=== PATIENT | male | born 1990 | race Caucasian/White ===

== ENCOUNTER 2024-10-08 22:25 | Inpatient (IN) | payer BC, SELFPAY ==
[2024-10-08] VITALS (25 sets, daily range): BP systolic 155–250; BP diastolic 101–147; BMI 35.9; BMI 36.6
--- NOTE | 2024-10-08 19:28 | ED.GENMED ---
History of Present Illness
General
Chief Complaint: Eye Problems
Source: patient
Exam Limitations: none
Time Seen by Provider: 10/08/24 18:51
History of Present Illness
History of Present Illness:
Note:
CHIEF COMPLAINT(S)
Blurry vision in the left eye and high blood pressure.
HISTORY OF PRESENT ILLNESS
The patient is a 34-year-old male who presents with a complaint of blurry vision in the left eye that began approximately six days ago. 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 Initially attributing the issue to contact lens discomfort, the patient described the vision alteration as a dark spot in the visual field, izaiah to the afterimage one sees after looking at a bright light, surrounded by blurry edges. He
reports that the symptom was persistent through various activities such as reading and screen use, and he noticed difficulty focusing, requiring his other eye to adjust, which occasionally led to headaches.
The patient visited his eye doctor, where a diagnosis of optic neuritis was considered after observing some changes in the optic nerve on imaging. He was recommended to visit the emergency room for further evaluation possibly due to elevated blood
pressure, though no medications were prescribed at that time.
The patient denies nausea, vomiting, fever, chills, chest pain, shortness of breath, abdominal pain, constipation, or diarrhea. He recalls bumping his head mildly a few days prior but denies any significant impact or headaches during that time.
CHRONIC MEDICAL CONDITIONS SIGNIFICANTLY AFFECTING CARE
The patient reports a historical observation of borderline high blood pressure, although he has never been formally treated for hypertension and has not undergone regular medical follow-up in years.
SOCIAL HISTORY
The patient reports regular alcohol consumption, indicating that he drinks every other to every three days. He consumes about three to four drinks per occasion, with a tendency to increase during weekends.
REVIEW OF SYSTEMS
- Visual: Blurry vision described as a dark spot, blurry on the edges, with associated headaches.
- Neurological: Denies significant headaches post minor head impact, denies nausea or vomiting.
- General: No fever, chills; no signs of infection or systemic illness.
- Cardiovascular: High blood pressure.
PHYSICAL EXAM
- Nursing notes reviewed and vital signs reviewed.
PROBLEM LIST
Acute Problems:
Malignant hypertension, possible optic neuritis
PLAN
1. Perform blood work to assess kidney function and electrolyte levels due to elevated blood pressure.
2. Monitor and manage high blood pressure cautiously; potential introduction of antihypertensive medication depending on lab results.
3. hospital admission for observation and evaluation of hypertension based on results.
4. Obtain computed tomography scan results to assess any structural changes in the brain or eye region.
5. Discuss potential lifestyle modifications focused on reducing alcohol consumption and managing hypertension moving forward.
DIFFERENTIAL DIAGNOSIS
The Differential Diagnosis includes, in no particular order, and is not limited to:
1. Malignant hypertension
2. Hypertensive retinopathy.
3. Central retinal vein occlusion.
4. Intracranial hypertension.
5. Transient ischemic attack.
6. Migraine with aura.
7. Retinal detachment.
8. Diabetic retinopathy.
9. Brain tumor.
10. Multiple sclerosis.
Disposition:
SUMMARY OF ENCOUNTER
The patient, a 34-year-old male, presented with a complaint of a floater in the left eye that had persisted for six days. During his visit to the emergency department, he was found to have hypertension. After consulting with ophthalmology, it was
recommended to control his blood pressure to address the malignant hypertension. Accordingly, the patient was started on a beta-dutch drip for blood pressure management and was prepared for hospital admission for further observation and treatment.
DISPOSITION
Admit.
ASSESSMENT
The patient presents with malignant hypertension and blurred vision in the left eye, possibly due to optic neuritis linked to elevated blood pressure.
MANAGEMENT OF THE PATIENTS CARE WAS DISCUSSED WITH
Ophthalmology, specifically Dr. Baig.
PLAN
The plan is to admit the patient for observation and management of malignant hypertension, starting with a beta-dutch drip to stabilize blood pressure.
MEDICAL DECISION MAKING
- Number and Complexity of Problems Addressed: Chronic conditions affecting care include a historical observation of borderline high blood pressure. Differential diagnosis includes optic neuritis, hypertensive retinopathy, central retinal vein
occlusion, intracranial hypertension, transient ischemic attack, migraine with aura, retinal detachment, diabetic retinopathy, brain tumor, and multiple sclerosis.
CRITICAL CARE TIME
I provided critical care time to manage the patients condition effectively, especially considering the risk of complications from malignant hypertension and addressing the persistence of blurred vision.
DIAGNOSIS
- Malignant hypertension (I10)
- Possible optic neuritis (H46.9)
Review of Systems
Review of Systems
All Other Systems: ROS reviewed and negative except as documented in HPI and ROS
Constitutional: Reports no symptoms
EENT: Reports other (Floater)
Respiratory: Reports no symptoms
Cardiac: Reports no symptoms
ABD/GI: Reports no symptoms
: Reports no symptoms
Musculoskeletal: Reports no symptoms
Skin: Reports no symptoms
Neurological: Reports no symptoms
Endocrine: Reports no symptoms
Hematologic/Lymphatic: Reports no symptoms
Psychiatric: Reports no symptoms
Phy Exam
General Physical Exam
General Presentation: well appearing and no apparent distress
General Skin: warm and dry
General Habitus: normal
General Mental: alert
General Hydration: appears well hydrated
ENT Exam
ENT Exam: EOMI, pharynx normal, neck supple and normocephalic
Eye Exam
Eye Exam: PERRL, cornea clear and conjunctiva normal
Cardiovascular Exam
Cardiovascular Exam: regular rate/rhythm, no edema, no murmur and normal peripheral pulses
Pulmonary Exam
Pulmonary Exam: lungs clear, no respiratory distress, no rales, no crackles, no rhonchi, no stridor, no wheezing and no cough
Gastrointestinal Exam
Gastrointestinal Exam: normal bowel sounds, non tender, soft, no organomegaly, no pulsatile mass and non distended
Neurological Exam
Neurological Exam: alert, oriented x3, no motor deficits and speech normal
Musculoskeletal Exam
Musculoskeletal Exam: full ROM and no edema
Skin Exam
Skin Exam: normal color, warm/dry, no rash and no petechia
Psychiatric Exam
Psychiatric Exam: normal mood/affect
Course
Orders/Labs/Results
Orders:
Orders
10/08/24 17:01
CT Head W/o Iv Contrast Urgent
Comment:
Reason For Exam: dark spot left eye visual field/hypertension
10/08/24 19:25
Complete Blood Count/With Diff Urgent
Comprehensive Metabolic Panel Urgent
Erythrocyte Sed Rate Urgent
PTT Urgent
Prothrombin Time Urgent
TSH Urgent
Troponin I Urgent
10/08/24 19:32
Lisinopril [Zestril] 10 mg PO NOW STA
10/08/24 20:08
Electrocardiogram (*1) Urgent
Reason for Study: Bradycardia / Tachycardia
EKG- Treatment ONCE
10/08/24 21:30
Labetalol HCl [Trandate] 400 mg Empty Viaflex Container 100 ml [Viaflex Empty Container] 0 ml IV PER PROTOCOL
Initial dose in mg/min, then titrate:: 2
Titrate to keep:: SBP 120 - 140 mmHg
Titrate by mg/min:: 0.5 mg/min
Frequency of titrations (minutes):: 15
Additional Titration Instructions:: Bolus with 20 mg IV every 15 minutes PRN dose increase
Maximum dose in mg/min:: 4
Begin to taper infusion when:: Remained at goal for 4hrs
Taper by mg/min:: 0.5 - 1 mg/min
Frequency of taper (minutes) if patient maintains goal:: 30
Taper to off?: Yes
If infusion off & no longer maintaining goal:: Contact Provider
Abnormal Lab Results
10/08/24
19:25
Abs Immat Gran (auto) 0.1 H 10^3/uL
(0-0.05)
Absolute Monos (auto) 0.7 H 10^3/uL
(0.1-0.6)
Immature Gran % 0.7 H %
(0-0.5)
ALT 56 H U/L
(0-50)
Albumin 5.1 H g/dl
(3.5-5.0)
10/08/24 19:25
10/08/24 19:25
Vital Signs
Initial and Last Documented VS:
Initial Vital Signs
Temp Pulse Resp BP Pulse Ox
98.2 F 98 20 250/147 98
10/08/24 16:55 10/08/24 16:55 10/08/24 16:55 10/08/24 16:55 10/08/24 16:55
Last Documented Vital Signs
Temp Pulse Resp BP Pulse Ox
97.6 F 100 19 196/122 99
10/08/24 18:48 10/08/24 21:56 10/08/24 19:22 10/08/24 21:56 10/08/24 19:28
*Radiology
Radiology exam reviewed: radiology read reviewed
*Pulse Oximetry
SaO2: 99
Oxygen Mode of Delivery: Room air
Patient hypoxic: no
*Critical Care Note
Total Time (30-74mins, 75-104mins- exclusive of procedures): 33
comment:
Critical care statement: A total of 33 minutes of critical care time was provided for this patient. This time is separate from time utilized to perform the aforementioned documented procedures. Aggregate critical care time includes only time
during which I was engaged in work directly related to the patient's care, as described above, whether at the bedside or elsewhere in the Emergency Department.
ED Attending Note
-
Portions of this chart may have been created with voice recognition software.� Occasional wrong word or��sound alike� substitutions may have occurred due to the inherent limitations of voice recognition software.
Discharge Plan
Departure
Patient Disposition: Admit
Date of Disposition: 10/08/24
Time of Disposition: 22:06
Admit to: IMU
Presentation/result/management discussed w/ accepting MD/DO: Hospitalist
Patient with high blood pressure during this ER visit?: Yes
Discharge Problem:
Malignant hypertension, Hypertensive retinopathy
Prescriptions:
No Action
acetaminophen [Tylenol] 325 mg Tablet
650 mg PO DAILYPRN PRN (Reason: mild pain)
Referrals:
NONE,* [Family Provider, Internal Medicine]
Interventions
Interventions:
*Risk Screen - Suicide Last Done: 10/08/24 16:55
*General Assessment Last Done: 10/08/24 18:48
*Neglect/Abuse Screening Last Done: 10/08/24 16:55
*ED- Fall Risk Assessment Last Done: 10/08/24 18:48
*ED COVID-19 Vaccine History Last Done: 10/08/24 18:48
Discharge Date and Time
Print Language: TURKMEN
[2024-10-08 19:37] LABS: Hematocrit 43.7 % (39.0-52.0); Hemoglobin 15.1 g/dL (13.0-18.0); Mean Corp Hgb Conc. 34.6 g/dL (33.0-37.0); Mean Corpuscular Volume 84.9 fL (80.0-94.0); Nucleated Red Blood Cells % 0 % (-); Platelet Count 235 10^3/uL (130-400); Red Cell Dist. Width 12.2 % (11.5-14.5)
[2024-10-08] MEDS: ZESTRIL 10 MG PO (19:43)
[2024-10-08 19:47] LABS: INR 1.02; PT 13.9 Sec (11.4-14.6)
[2024-10-08 19:48] LABS: APTT 32.0 Sec (23.4-35.0)
[2024-10-08 20:00] LABS: ALT (SGPT) 56 U/L (0-50); AST (SGOT) 52 U/L (17-59); Albumin 5.1 g/dl (3.5-5.0); Alkaline Phosphatase 55 U/L (38-126); Blood Urea Nitrogen 14 mg/dl (9-20); Calcium 9.7 mg/dl (8.4-10.2); Carbon Dioxide 23 mmol/L (22-30); Chloride 107 mmol/L (98-107); Estimated Creatinine Clearance > 125 ml/min; Glucose 94 mg/dl (70-99); Potassium 3.5 mmol/L (3.5-5.1); Sodium 141 mmol/L (135-145); Total Protein 7.6 g/dl (6.3-8.2); Troponin I < 0.012 ng/ml; eGFR > 60.00
[2024-10-08 20:50] LABS: TSH 1.66 uIU/ml (0.47-4.68)
[2024-10-08] MEDS: TRANDATE 80 MG IV (21:56)
--- NOTE | 2024-10-08 22:16 | HPS.HSE ---
Family Physician
-
Family Physician: * NONE
Chief Complaint
-
dark spot in L eye
History of Present Illness
34yo M came with persistent fixed dark sopot in L eye. 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 No retinal pathology on paperwork
presented by patient in ED. In ED found significant hypertension, admitted for malignant HTN.
Medical History
Past Medical History
Past Medical History: Reports None
Past Surgical History: Reports None
Social History
Tobacco: Non-smoker
Alcohol: Occasional
Drug: None
Family History
Family History: Not pertinent
Allergies / Home Medications
Allergies reflects when Allergies were last updated in [employer].
Home Medications with original date entered in [employer]
Allergy/Medication List:
Allergies
Allergy/AdvReac Type Severity Reaction Status Date / Time
No Known Drug Allergies Allergy Unknown Verified 10/08/24 19:37
Home Medications
acetaminophen 325 mg tablet (Tylenol) 650 mg PO DAILYPRN PRN mild pain 10/08/24
Review of Systems
-
History Source: Patient
A 12 point ROS was completed and negative except as noted: Yes
EENT: Reports See HPI
Physical Exam
Vital Signs
Vital Signs
Temp Pulse Resp BP Pulse Ox
97.6 F 100 19 196/122 99
10/08/24 18:48 10/08/24 21:56 10/08/24 19:22 10/08/24 21:56 10/08/24 19:28
Physical Exam
General: Well Nourished, No Apparent Distress and Comfortable
HEENT: NormoCephalic, Anicteric and Moist mucous membranes
Respiratory: Clear; No Wheezes or Crackles
Cardiac: S1/S2 and Regular Rhythm; No Murmur
GI: Soft, Non Tender and Non Distended
Genito-urinary: No costovertebral tender
Musculoskeletal: No Clubbing, No Cyanosis and No Edema
Skin: Warm; No Rash or Jaundice
Neuro: Awake, Alert, Oriented and AO x 3
Psych: Calm
Laboratory Results
-
10/08/24:
10/08/24:
Laboratory Results
PT 13.9 Sec (11.4-14.6) 10/08/24
INR 1.02 10/08/24
APTT 32.0 Sec (23.4-35.0) 10/08/24
Total Bilirubin 0.7 mg/dl (0.2-1.3) 10/08/24
AST 52 U/L (17-59) 10/08/24
ALT 56 U/L (0-50) H 10/08/24:
Alkaline Phosphatase 55 U/L (38-126) 10/08/24:
Troponin I < 0.012 ng/ml 10/08/24:
Data Reviewed
-
CT Scan: Report Reviewed by me
Lab Data: Labs Reviewed by me
Impression/Plan
-
A/P:
#Optical disk swelling with floater 2/2 malignant HTN
ALso discussed with ophthalm in ED - as per ED attending - no need for urgent intervention, outpatient ophthalm
control BP: on Labetalol drip, add nifedipine, Lisinopril (BMP in 2 weeks)
Echo and cardio consult
#Elevated ALT
minimally
check hepatitis panel
outpatient f/u for MASLD
DVT ppx lovenox
Full code
I have spent at least 77min admitting the patient
[2024-10-09] VITALS (35 sets, daily range): BP systolic 119–167; BP diastolic 69–98
[2024-10-09] MEDS: TRANDATE 80 MG IV ×2 (00:15→03:21)
--- NOTE | 2024-10-09 02:23 | PTCARENOTE ---
Received pt from ER into 2242. Pt admitted with Malignant HTN on Labetalol gtt @ 3 mg/min and titrating to maintain a goal of SBP 120-140 mmHg. See MAR for titration and vital sign flowsheet for full details. AAOx3 SR on the monitor denies pain.
POC discussed with pt. Pt oriented to room and IVU policies and procedures. Call olivo within reach.
[2024-10-09 03:50] LABS: Hematocrit 40.6 % (39.0-52.0); Hemoglobin 14.0 g/dL (13.0-18.0); Mean Corp Hgb Conc. 34.5 g/dL (33.0-37.0); Mean Corpuscular Volume 85.8 fL (80.0-94.0); Nucleated Red Blood Cells % 0 % (-); Platelet Count 215 10^3/uL (130-400); Red Cell Dist. Width 12.3 % (11.5-14.5)
[2024-10-09 04:17] LABS: Magnesium 2.0 mg/dl (1.6-2.3)
[2024-10-09 04:48] LABS: TSH 2.82 uIU/ml (0.47-4.68)
[2024-10-09] MEDS: VITAMIN B1 100 MG PO (07:56)
[2024-10-09] MEDS: FOLVITE 1 MG PO (07:56)
[2024-10-09] MEDS: PROCARDIA XL (EXTENDED RELEASE) 30 MG PO (07:56)
[2024-10-09] MEDS: ZESTRIL 10 MG PO (07:56)
[2024-10-09] MEDS: FLUSH (NSS) 1 FLUSH IV (07:57)
--- NOTE | 2024-10-09 08:14 | PTCARENOTE ---
Patient resting in bed, IV labetalol infusing at 0.5mg/min, monitoring VS and tapering drip. Dr. Erickson in to see the patient and stated we should discontinue the infusion, PO morning meds given.
--- NOTE | 2024-10-09 08:28 | W.PN.HOSP.TC ---
Today's Communication/Plan
-
Monitor blood pressures
Discontinue labetalol
Echocardiogram
Cardiology
Assessment / Plan
Assessment / Plan
Gen-AAOx3, NAD
HEENT-NC, AT, anicteric, clear oral mm
Neck-supple
CV-reg, no M, +S1/S2
Lungs-clear B/L
Abd-soft, NT, ND
Ext-no edema
Musculoskeletal-no cyanosis, clubbing
Skin-warm and dry
Neuro-grossly non-focal
Psych-calm, cooperative
Hypertensive emergency -POA. Patient denies history of hypertension. Blood pressure improving on antihypertensives. Was not on blood pressure meds prior to admission. Does not have a primary care doctor, was last seen by a PCP 6 years ago. Does
not check his blood pressures at home.
Moving forward, anticipate discharging on 2 or 3 antihypertensives. Encourage patient to lose weight, obtain a PCP, monitor blood pressures at home. Discussed proper technique of checking blood pressures at home.
Cutting down on alcohol use is important as well. He does not smoke.
Echocardiogram pending. Cardiology consulted.
Started on lisinopril and nifedipine. Still on low-dose labetalol infusion, at this point we can discontinue given rapid improvement in blood pressure. Discussed with nursing.
Obesity due to excess calories
Full code
Anticipated Discharge: Within 24 hours
Subjective/Interval History
-
Date of Service: October 09, 2024
Patient seen and examined. Still with left sided central vision loss. Denies headache.
Objective Data
-
Labs:
Laboratory Results
10/09/24
03:35
WBC 9.1
Hgb 14.0
Hct 40.6
Plt Count 215
Vital Signs:
Vital Signs
Temp Pulse Resp BP Pulse Ox
98.1 F 75 16 128/80 98
10/09/24 03:31 10/09/24 05:30 10/09/24 03:31 10/09/24 05:30 10/09/24 03:31
I&O
10/08/24 10/09/24 10/10/24
06:59 06:59 06:59
Intake Total 175 / 175
Balance 175 / 175
Review of Systems
-
History Source: Patient
All other systems: Reviewed and negative
--- NOTE | 2024-10-09 10:51 | CON.CAR ---
Addendum entered and electronically signed by Prasad Baker MD 10/09/24 13:52:
34-year-old man admitted with visual changes and hypertensive emergency. Initial blood pressure 250/147.
PMH: Mild hypertension in past
PSH: Tonsillectomy
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
Current meds: Nifedipine ER 30 mg a day, lisinopril 10 mg a day, enoxaparin, thiamine, folate, labetalol IV,
146/81, pulse 82, resp rate 16, afebrile, 96% no acute distress, head neck exam unremarkable, lungs are clear, regular rate and rhythm, no murmurs, extremities without clubbing cyanosis or edema distal pulses okay
ECG: Sinus rhythm, suspect LVH, RSR prime
Hemoglobin 14, potassium 3.5, BUN/creatinine 14 and 0.8, AST is 52 ALT is 56, troponin undetectable
Impression:
Malignant hypertension
Overweight/obese
Modest alcohol use, previously more
Plan:
See below as per Liset Graham. Reviewed in detail and agree, unless otherwise specified.
He presents with malignant hypertension, presumably the cause of his visual disturbance/optic neuropathy.
Blood pressure is substantially improved. Labetalol is discontinued.
Continue nifedipine and lisinopril. Will convert to oral labetalol.
Evaluation for secondary causes of hypertension currently in progress.
Importance of lifestyle measures reviewed with patient.
We will continue to follow.
Original Note:
Consultation
Consultation Request
Date/Time Consultation Requested: 10/08/2024 at 2330
Date/Time Consultation Performed: 10/09/2024 1024
Requesting Provider: Dr. Erickson
Performing Provider: Dr. ANDRÉS Baker
Reason for Consultation: Hypertensive emergency
Medical History
-
History of Present Illness:
Patient came to [facility] ER yesterday with HTN emergency and optic neuritis and cardiology has been consulted. 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 Spot persisted
through the weekend, it didn't get worse. When back at work he was looking at the computer screen and was not able to see what others saw so he saw his caramel coloring operator and they dilated his left pupil for funduscopic exam and saw changes concerning
for optic neuritis and referred patient to the ER for work-up to look for HTN or mass. Initial BP in the ER was 250/147 and 2 hours later BP was 229/140. Patient does not have history of HTN. I reviewed historic PCP visit from 2019 and BP was
138/86 at that time. There is FH of HTN as outlined above. Patient recalls having headaches intermittently over the last few months, but no pattern irregularity, he could have a single headache one week and two the next plus they would happen at
different times of day. Patient tried limiting caffeine and saw improvement in some of his headaches. No edema. No chest pain or SOB. He can walk up and down the stairs in his home without symptoms.
PMH:
No significant PMH
Past Medical History
Past Medical History: Other (In HPI)
Past Surgical History: Tonsilectomy
Social History
Tobacco: Non-Smoker
Alcohol: Other (1-2 drinks every other days, sometimes 1-2 drinks a day on the weekends)
Drug: None
Personal: Single
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
Family History
Family History: Hypertension (mother and father with HTN on single agent for control, older brother with no h/o HTN, father also with h/o Afib and had ablation with Dr. Purvis)
Allergies / Home Medications
Allergy/AdvReac Type Severity Reaction Status Date / Time
No Known Drug Allergies Allergy Unknown Verified 10/08/24 19:37
�Medication �Instructions �Recorded �Confirmed �Type
acetaminophen 325 mg tablet 650 mg PO DAILYPRN PRN mild pain 10/08/24 10/08/24 History
(Tylenol)
Review of Systems
-
History Source: Patient and Family (father in room)
All other systems: Negative unless noted
Physical Exam
Vital Signs
Temp Pulse Resp BP Pulse Ox
98.3 F 86 16 154/94 98
10/09/24 08:41 10/09/24 08:45 10/09/24 08:41 10/09/24 08:43 10/09/24 08:41
GEN: NAD. Sleeping initially then awakens easily and is AAOx3
HEENT: EOMI, MMM
LUNGS: RA. CTA B/L, no wheeze or rales
CV: SR on tele. Reg, S1/S2, no murmur
ABD: soft, BS+, NT, ND
EXT: No clubbing, cyanosis, lesions or edema B/L. 2+ PT B/L
NEURO: Gross non-focal
SKIN: No rash
Lab Results
10/09/24 03:35
10/08/24 19:25
Troponin I < 0.012 ng/ml 10/08/24 19:25
Impression / Plan
-
PCP: None, previously followed with Dr. Boyer, but looking to establish with a new PCP group
Card: None
Impression:
Admitted with vision change and HTN emergency
HTN emergency
Optic neuritis
seen by ophthalmology in the office 10/08/24
Overweight, BMI 36.6
Elevated ALT
Echo 10/09/24: Study pending
Plan:
-Patient came to [facility] ER yesterday with HTN emergency and optic neuritis and cardiology has been consulted. 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 Spot persisted
through the weekend, it didn't get worse. When back at work he was looking at the computer screen and was not able to see what others saw so he saw his caramel coloring operator and they dilated his left pupil for funduscopic exam and saw changes concerning
for optic neuritis and referred patient to the ER for work-up to look for HTN or mass. Initial BP in the ER was 250/147 and 2 hours later BP was 229/140. Patient does not have history of HTN. I reviewed historic PCP visit from 2019 and BP was
138/86 at that time. There is FH of HTN as outlined above. Patient recalls having headaches intermittently over the last few months, but no pattern irregularity, he could have a single headache one week and two the next plus they would happen at
different times of day. Patient tried limiting caffeine and saw improvement in some of his headaches. No edema. No chest pain or SOB. He can walk up and down the stairs in his home without symptoms.
-ECG reviewed by me is NSR without acute ST changes
-Patient with newly diagnosed HTN emergency. Patient denies known h/o HTN, but on a single available BP from 2019 his BP was 138/86.
-Reviewed plan to look for secondary causes of HTN with both patient and his father who was in the room. Renin, aldosterone, metanephrine and catecholamine levels ordered by me.
-Renal artery ultrasound ordered by me
-Echo pending
-Labs reviewed by me, troponin undetectable and BMP otherwise unremarkable.
-Asked patient to purchase an [employer] home BP cuff with an appropriately sized arm cuff. Patient provided with color handouts for how to check BP.
-Pending results of echo and U/S testing patient can be discharged to home, I do not expect the labs to be back right away and we can follow-up on that as an outpatient.
-Patient does not currently have a PCP and is looking to find a new practice. In the meantime cardiology will arrange for outpatient hospital follow-up. I informed the patient that in my opinion he should see a physician at least twice a year for
HTN management in addition to his home monitoring.
--- NOTE | 2024-10-09 12:14 | CM ---
spoke with pt in room, he is prev indep, lives alone in a 2 story home with 12 steps to enter. he denies any dc planning needs or dme's. plan is for dc to home when medically stable.
[2024-10-09] MEDS: LOVENOX 40 MG SC (17:51)
[2024-10-09 19:04] LABS: Hepatitis B Surface Antigen Negative (Negative)
[2024-10-09 19:22] LABS: Hepatitis C Antibody Negative (Negative)
[2024-10-09] MEDS: TRANDATE 100 MG PO (20:00)
[2024-10-10 04:11] VITALS: BP 165/92
[2024-10-10 04:14] VITALS: BMI 36.2
--- NOTE | 2024-10-10 04:52 | PTCARENOTE ---
Pt NSR on monitor Denies any pain this shift. Independent in the room. Call olivo within reach
[2024-10-10 07:53] VITALS: BP 178/105
[2024-10-10 07:54] VITALS: BP 168/103
--- NOTE | 2024-10-10 08:19 | W.PN.HOSP.TC ---
Today's Communication/Plan
-
Increase nifedipine dose
Monitor blood pressure
Assessment / Plan
Assessment / Plan
Gen-AAOx3, NAD
HEENT-NC, AT, anicteric, clear oral mm
Neck-supple
CV-reg, no M, +S1/S2
Lungs-clear B/L
Abd-soft, NT, ND
Ext-no edema
Musculoskeletal-no cyanosis, clubbing
Skin-warm and dry
Neuro-grossly non-focal
Psych-calm, cooperative
Hypertensive emergency -POA. Patient denies history of hypertension. Blood pressure improving on antihypertensives. Was not on blood pressure meds prior to admission. Does not have a primary care doctor, was last seen by a PCP 6 years ago. Does
not check his blood pressures at home.
Moving forward, anticipate discharging on 2 or 3 antihypertensives. Encourage patient to lose weight, obtain a PCP, monitor blood pressures at home. Discussed proper technique of checking blood pressures at home.
Cutting down on alcohol use is important as well. He does not smoke.
Echocardiogram shows LVEF 55 to 60%, normal diastolic function. Moderate concentric LVH.
Renal artery duplex ultrasound was limited study but no obvious renal artery stenosis noted.
This morning blood pressure remains elevated.
Will increase nifedipine to 60 mg XL daily, continue lisinopril and labetalol.
Labs sent for secondary causes of hypertension, all pending.
Obesity due to excess calories
Full code
Dispo -discharge once blood pressure under reasonable control with close outpatient follow-up.
Anticipated Discharge: Within 24 hours
Subjective/Interval History
-
Date of Service: October 10, 2024
Patient seen and examined, no changes in left eye visual field loss in the central vision. Peripheral vision is okay.
Objective Data
-
Vital Signs:
Vital Signs
Temp Pulse Resp BP Pulse Ox
98.1 F 74 18 179/101 98
10/10/24 07:54 10/10/24 07:54 10/10/24 07:54 10/09/24 20:00 10/10/24 07:54
I&O
10/09/24 10/10/24 10/11/24
06:59 06:59 06:59
Intake Total 175 / 175
Balance 175 / 175
Review of Systems
-
History Source: Patient
All other systems: Reviewed and negative
--- NOTE | 2024-10-10 08:27 | W.DS.TRANS ---
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
-
Discharge Instructions:
Discharge Diagnosis/Procedures Hypertensive emergency
Diet Low Sodium,Low Fat,Low Cholesterol
Activity As tolerated
Driving Restrictions Not until seen by your Dr
Bathing Restrictions None
Instructions:
Stand-Alone Forms:
Changes to Home Medications: No
Discharge Medications:
DC Medications w/original date entered in [facility]
labetalol 100 mg tablet 100 mg PO BID #60 tabs 10/10/24
lisinopril 20 mg tablet 20 mg PO DAILY #30 tabs 10/10/24
nifedipine 60 mg tablet,extended release 24 hr (Procardia XL) 60 mg PO DAILY #30 tabs 10/10/24
Home Medication Changes
Pending Results: No
--- NOTE | 2024-10-10 08:32 | W.PN.CARDCBS ---
Today's Communication / Plan
-
Okay for discharge on uptitrated lisinopril and nifedipine
We will arrange for cardiac follow-up
Impression / Plan
-
PCP: None, previously followed with Dr. Boyer, but looking to establish with a new PCP group
Card: None
Impression:
Malignant hypertension
Overweight/obese
Modest alcohol use, previously more
Horseshoe kidney
Optic neuritis
Plan:
Overall he looks improved though blood pressure still not optimal.
Nifedipine has been uptitrated, lisinopril to be uptitrated as well.
Probably should have an outpatient CTA of the renal arteries, we can arrange.
Aldosterone PRA, metanephrines pending
Consider outpatient CTA of renal arteries
Okay for discharge, we will arrange for outpatient follow-up
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
Subjective
Date of Service: October 10, 2024:
34-year-old man admitted with visual changes and hypertensive emergency. Initial blood pressure 250/147.
PMH: Mild hypertension in past
PSH: Tonsillectomy
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
Current meds: Nifedipine ER 30 mg a day, lisinopril 10 mg a day, enoxaparin, thiamine, folate, labetalol 100 mg twice daily
179/101, 146/81, Head neck exam unremarkable, lungs are clear, regular rate and rhythm, no obvious murmurs abdomen benign extremities without clubbing cyanosis or edema
Renal artery duplex: No obvious distal stenoses, exam limited, probable horseshoe kidney
Lab studies for abnormalities of renin-angiotensin and sympathetic nervous system pending
Echocardiogram: Moderate LVH, EF 55-60%, trace mitral regurgitation
Objective
Labs:
10/09/24 03:35
10/08/24 19:25
Labs
Hgb 14.0 g/dL (13.0-18.0) 10/09/24 03:35
Hct 40.6 % (39.0-52.0) 10/09/24 03:35
Plt Count 215 10^3/uL (130-400) 10/09/24 03:35
PT 13.9 Sec (11.4-14.6) 10/08/24 19:25
INR 1.02 10/08/24 19:25
APTT 32.0 Sec (23.4-35.0) 10/08/24 19:25
Sodium 141 mmol/L (135-145) 10/08/24 19:25
Potassium 3.5 mmol/L (3.5-5.1) 10/08/24 19:25
BUN 14 mg/dl (9-20) 10/08/24 19:25
Creatinine 0.8 mg/dL (0.7-1.3) 10/08/24 19:25
Glucose 94 mg/dl (70-99) 10/08/24 19:25
Troponins
10/08/24
19:25
Troponin I < 0.012
Vital Signs and I&O:
Vital Signs
Temp Pulse Resp BP Pulse Ox
36.7 C 74 18 179/101 98
10/10/24 07:54 10/10/24 07:54 10/10/24 07:54 10/09/24 20:00 10/10/24 07:54
Vital Signs
Temp Pulse Resp BP Pulse Ox
36.7 C 74 18 179/101 98
10/10/24 07:54 10/10/24 07:54 10/10/24 07:54 10/09/24 20:00 10/10/24 07:54
Intake & Output
10/08/24 10/09/24 10/10/24 10/11/24
07:59 07:59 07:59 07:59
Intake Total 175 / 175
Balance 175 / 175
Physical Exam
Physical Exam
See above
[2024-10-10] MEDS: ZESTRIL PO (08:42)
[2024-10-10] MEDS: PROCARDIA XL (EXTENDED RELEASE) PO (08:42)
[2024-10-10] MEDS: PROCARDIA XL (EXTENDED RELEASE) 60 MG PO (08:50)
[2024-10-10] MEDS: FOLVITE 1 MG PO (08:50)
[2024-10-10] MEDS: TRANDATE 100 MG PO (08:50)
[2024-10-10] MEDS: ZESTRIL 20 MG PO (08:50)
[2024-10-10] MEDS: VITAMIN B1 100 MG PO (08:52)
--- NOTE | 2024-10-10 09:36 | CM ---
Reviewed chart. Met with Mr. Wilkes to review discharge plans. He states he is feeling well and maybe able to go home soon. He states prior to admission he resides alone in a three story home with twelve steps to enter. He states he has a
full flight of steps to get to bedroom/full bathroom. He states he has a powder room on the firt floor. He states prior to admission he was independent with ambulation and adls. He states he does not have any DME in the home. He states he has a
prescription plan. Medical work-up in progress. The discharge plan is to return home when medically stable.
--- NOTE | 2024-10-10 09:53 | PTCARENOTE ---
Patient offers no complaints this morning, BP remains elevated. Patient seen by Dr. Erickson and medications adjusted and administered. Patient ordered breakfast and is in for discharge today.
[2024-10-10 10:42] VITALS: BP 156/79
[2024-10-10 11:23] VITALS: BP 177/92
--- NOTE | 2024-10-10 12:13 | PTCARENOTE ---
Reviewed discharge medications with the patient and his need to monitor his BP daily, given instruction sheet and information on hypertension. Patient already purchased the recommended BP monitor for home use. Aware of follow up appointments and he
will need to call and change the date/time of the September appointment. He telephoned his parents for a ride home and instructed that he should refrain from driving until he is clear by his eye doctor.
[2024-10-12 12:14] LABS: Aldosterone/Renin Activ Ratio 26.2 ratio (<=25.0); Renin Activity Results 0.4 ng/mL/hr
== END 2024-10-10 12:22 | disposition home or self-care (01) | DRG 305 ==
LOC: IVU 22:25
PROVIDERS: Physician Assistant Medical; ADMITTING PHYSICIAN Internal Medicine; ATTENDING PHYSICIAN Hospitalist; EMERGENCY PHYSICIAN Student in an Organized Health Care Education/Training Program; OTHER PHYSICIAN Internal Medicine Cardiovascular Disease
DX: I16.1 Hypertensive emergency (principal); H46.9 Unspecified optic neuritis; H54.62 Unqualified visual loss, left eye, normal vision right eye; R51.9 Headache, unspecified; I10 Essential (primary) hypertension; R74.01 Elevation of levels of liver transaminase levels; F10.90 Alcohol use, unspecified, uncomplicated; E66.09 Other obesity due to excess calories; Q63.1 Lobulated, fused and horseshoe kidney; Z60.2 Problems related to living alone; Z68.36 Body mass index [BMI] 36.0-36.9, adult; Z82.49 Family history of ischemic heart disease and other diseases of the circulatory system
CPT/HCPCS: 70450; 80053; 82088; 82384; 83735; 83835; 84244; 84443; 84484; 85025; 85610; 85652; 85730; 86704; 86706; 86803; 87340; 93005; 93306; 93975; 99291

== ENCOUNTER → 2024-11-28 12:51 | Outpatient (REF) | payer BC, SELFPAY | LOC: RAD 12:51 | PROVIDERS: ATTENDING PHYSICIAN Physician Assistant Medical; FAMILY PHYSICIAN Family Medicine | DX: I10 Essential (primary) hypertension (principal); Q63.1 Lobulated, fused and horseshoe kidney; E66.9 Obesity, unspecified | CPT/HCPCS: 74175; Q9967 ==

== ENCOUNTER → 2025-01-08 13:58 | Outpatient (REF) | payer BC, SELFPAY | LOC: DHSLP 13:58 | PROVIDERS: ATTENDING PHYSICIAN Physician Assistant Medical; FAMILY PHYSICIAN Family Medicine | DX: G47.30 Sleep apnea, unspecified (principal); R06.83 Snoring | CPT/HCPCS: 95800 ==